=== PATIENT | male | born 1955 | race Caucasian/White ===

== ENCOUNTER 2021-07-18 12:29 | Emergency (ER) | payer OTHER ==
[~2021-07-18] VITALS: Ht 193 cm; Wt 79.4 kg
[2021-07-18] MEDS ORDERED: ZYPREXA10 M1 IM (12:43)
== END 2021-07-23 01:48 | disposition left against medical advice (07) ==
LOC: ER 12:29
DX: F32.9 Major depressive disorder, single episode, unspecified (principal); U07.1 COVID-19; F41.8 Other specified anxiety disorders; F20.89 Other schizophrenia; E86.0 Dehydration; F10.10 Alcohol abuse, uncomplicated; Z85.828 Personal history of other malignant neoplasm of skin; Z85.89 Personal history of malignant neoplasm of other organs and systems; I11.9 Hypertensive heart disease without heart failure

== ENCOUNTER 2023-02-14 06:51 | Emergency (ER) | payer OTHER ==
[~2023-02-14] VITALS: Ht 170.2 cm; Wt 72.6 kg
[~2023-02-14 06:51] MED LIST: ABILIFY2 MG; ZYPREXA10 M1 IM
[2023-02-14 09:41] LABS: HEMATOCRIT 40.3 % (39.0-48.0); HEMOGLOBIN 13.8 g/dL (13-16.00); MEAN CELL VOLUME 86.5 fL (80.0-100.00); MEAN CORPUSCULAR HEMOGLOBIN 29.7 pg (27.00-32.0); MEAN CORPUSCULAR HGB CONC 34.3 g/dl (32.0-36.0); PLATELET COUNT 167 K/uL (150-450); RED BLOOD COUNT 4.66 M/uL (4.00-6.00); RED CELL DISTRIBUTION WIDTH 13.9 % (11.5-14.5)
[2023-02-14 10:04] LABS: CALCIUM 9.2 mg/dL (8.5-10.1); CREATININE SERUM 0.92 mg/dL (0.70-1.30); GFR 82.06; POTASSIUM 3.86 mEq/L (3.5-5.1)
[2023-02-14 10:23] LABS: INR 1.43; PARTIAL THROMBOPLASTIN TIME 25.1 SECONDS (22.0-34.0); PROTHROMBIN TIME 14.6 SECONDS (9.0-11.5)
[2023-02-14 15:20] LABS: PH,URINE 6.5 (5.0-8.0); URINE APPEARANCE Clear; URINE BILIRRUBIN Negative (NEGATIVE); URINE BLOOD Negative; URINE COLOR Yellow; URINE GLUCOSE Negative (NEGATIVE); URINE LEUKOCYTE Negative; URINE NITRATE Negative; URINE PROTEIN Negative (NEGATIVE); URINE UROBILINOGEN 0.2 E.U./dl
[2023-02-14 15:35] LABS: URINE BACTERIA 0 uL (0.0-1933); URINE EPITHELIAL CELLS 0.1 uL (0.0-38.8); URINE RBC 0.7 uL (0.0-20.8); URINE WBC 0.6 uL (0.0-23.2)
[2023-02-14 15:46] LABS: COCAINE POSITIVE (NEGATIVE); METHADONE NEGATIVE (NEGATIVE); OPIATES NEGATIVE (NEGATIVE); THC ( Cannabinoids) POSITIVE (NEGATIVE)
== END 2023-02-14 22:16 | disposition designated cancer center or children's hospital (05) ==
LOC: ER 06:51
PROVIDERS: General Practice
DX: R45.851 Suicidal ideations (principal); F41.8 Other specified anxiety disorders; Z20.822 Contact with and (suspected) exposure to COVID-19

== ENCOUNTER → 2023-02-20 | Emergency (ER) | payer OTHER ==
[~2023-02-20] VITALS: Ht 193 cm; Wt 72.6 kg
== END | disposition left against medical advice (07) ==
LOC: ER 13:55
DX: Z53.21 Procedure and treatment not carried out due to patient leaving prior to being seen by health care provider (principal)